=== PATIENT | male | born 1935 | race African-American/Black ===

== ENCOUNTER 2017-07-22 05:18 | Observation (INO) | payer MEDICARE ==
[~2017-07-22] VITALS: Ht 198.1 cm; Wt 83.0 kg
[2017-07-22 06:47] LABS: BASOPHILS % 0.3 % (0.0-1.0); EOSINOPHILS # (AUTO) 0.1 (0.0-0.4); EOSINOPHILS % 3.2 % (0.0-6.0); HEMATOCRIT 29.7 % (38.2-49.6); HEMOGLOBIN 9.4 g/dL (14.0-18.0); LYMPHOCYTES # (AUTO) 0.8 (1.0-3.2); LYMPHOCYTES % 24.2 % (18.0-39.1); MEAN CORPUSCULAR HEMOGLOBIN 27.2 pg (28-32); MEAN CORPUSCULAR HGB CONC 31.6 g/dL (31-35); MEAN CORPUSCULAR VOLUME 86.1 fL (81-99); MONOCYTES # (AUTO) 0.6 (0.2-0.8); MONOCYTES % 16.4 % (4.4-11.3); NEUTROPHILS # (AUTO) 1.9 (2.1-6.9); NEUTROPHILS % 55.6 % (38.7-80.0); PLATELET COUNT 260 x10e3/uL (140-360); RED BLOOD COUNT 3.45 x10e6/uL (4.3-5.7); RED CELL DISTRIBUTION WIDTH 13.9 % (11.7-14.4)
[2017-07-22 06:53] LABS: INR 1.02; PROTHROMBIN TIME 13.9 seconds (11.9-14.5)
[2017-07-22 06:54] LABS: PARTIAL THROMBOPLASTIN TIME 48.8 seconds (23.8-35.5)
[2017-07-22] MEDS ORDERED: ASPIRIN81 MG PO (06:58)
[2017-07-22] MEDS ORDERED: MIDODRINE HCL2.5 MG PO (06:58)
[2017-07-22] MEDS ORDERED: FLOMAX0.4 MG PO (06:58)
[2017-07-22] MEDS ORDERED: CEFDINIR300 MG PO (06:58)
[2017-07-22] MEDS ORDERED: CIPROFLOXACIN250 MG PO (06:58)
[2017-07-22 07:00] LABS: ANION GAP 13.4 mmol/L (8-16); CALCIUM 8.4 mg/dL (8.4-10.2); CREATININE, SERUM 7.34 mg/dL (0.72-1.25); POTASSIUM 4.4 mmol/L (3.5-5.1)
[2017-07-22] MEDS ORDERED: CEFTRIAXONE SOD 1 GM VIAL ONE (07:10)
[2017-07-22] MEDS ORDERED: SODIUM CHLORIDE 0.9% 500ML 500 ML ONE (07:10)
[2017-07-22] MEDS ORDERED: BUPIVACAINE 7.5MG/ML /DEXTROSE 82.5MG/ML 2 ML AMP INJ ONE (07:49)
[2017-07-22 10:03] LABS: HEMATOCRIT 28.3 % (38.2-49.6); HEMOGLOBIN 8.9 g/dL (14.0-18.0)
[2017-07-22 10:20] LABS: ANION GAP 14.6 mmol/L (8-16); CALCIUM 8.1 mg/dL (8.4-10.2); CREATININE, SERUM 7.18 mg/dL (0.72-1.25); POTASSIUM 4.6 mmol/L (3.5-5.1)
[2017-07-22 11:23] VITALS: BP 156/69
[2017-07-22 12:00] VITALS: BP 159/69
[2017-07-22] MEDS ORDERED: SODIUM CHLORIDE 0.45% 1,000 ML IV ONE (13:00)
[2017-07-22 16:00] VITALS: BP 114/58
[2017-07-22] MEDS: TRAMADOL HCL 50 MG TAB PO SCH (17:07)
[2017-07-22] MEDS ORDERED: FENTANYL CITRATE/PF 100MCG/2 ML INJ ONE (19:31)
[2017-07-22 20:00] VITALS: BP 118/56
[2017-07-23] VITALS (7 sets, daily range): BP systolic 101–133; BP diastolic 55–68
[2017-07-23] MEDS: TRAMADOL HCL 50 MG TAB PO SCH ×4 (00:45→17:20)
[2017-07-23 06:27] LABS: HEMATOCRIT 22.6 % (38.2-49.6); HEMOGLOBIN 7.2 g/dL (14.0-18.0)
[2017-07-23 06:45] LABS: ANION GAP 12.2 mmol/L (8-16); CALCIUM 7.9 mg/dL (8.4-10.2); CREATININE, SERUM 7.35 mg/dL (0.72-1.25); POTASSIUM 4.2 mmol/L (3.5-5.1)
--- NOTE | 2017-07-23 10:46 | Operative Report ---
DATE OF PROCEDURE: July 22, 2017 PREOPERATIVE DIAGNOSIS: Urinary retention. POSTOPERATIVE DIAGNOSIS: Urinary retention. OPERATIVE PROCEDURES PERFORMED 1. Cystoscopy. 2. Transurethral resection of prostate. ANESTHESIA: Spinal with IV sedation. ESTIMATED BLOOD LOSS: Less than 100 mL. INDICATIONS: Mr. Herbert Rodriguez is an 82-year-old gentleman with a history of urinary retention for the past month, which has failed multiple voiding trials despite maximum medical management. He now presents for surgical management of this problem. PROCEDURE IN DETAIL: The patient was brought into the operating room, and after administration of spinal anesthesia, he was placed in the dorsal lithotomy position, and prepped and draped in the usual sterile fashion. Cystourethroscopy was performed using a 21-Salvadorean cystoscope. The anterior and posterior urethra were noted to be normal. 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 Upon entrance into the bladder, the ureteral orifices were very difficult to visualize given the large intravesical median lobe. There were grade 2 trabeculations with cellule formation noted. There were no mucosal lesions identified. The bladder was left full, and the cystoscope and sheath were removed. A 26-Salvadorean resectoscope sheath was then placed in a retrograde fashion, and the [employer] resectoscope was used to perform the procedure. No attempt was made to resect the right side of the gland during the procedure. The left side of the gland, as well as the median lobe were resected down to the level of the surgical capsule. Minimal residual tissue was seen left on the floor on the gland. The [email or web address] evacuator was used to remove these chips, and these were sent to pathology for microscopic analysis. Minimal bleeding was noted at the conclusion of the procedure. There was no gross extravasation at the surgical capsule. Once all the chips were evacuated, the resectoscope and sheath were removed. The patient was noted to have a brisk urinary flow with Coude. A 24-Salvadorean, 3-way Coude catheter was then placed in a retrograde fashion. The catheter balloon inflated with 40 mL of sterile water. The urinary efflux was noted to be blood-tinged. He was started on continuous bladder irrigation, and returned to a supine position. He was transferred to a bed and taken to the postanesthesia care unit in good condition. Of note, the needle and instrument count were correct at the conclusion of the case. Job#: [id number] RI
[2017-07-23] MEDS ORDERED: LIDOCAINE HCL 2% LOCAL INJ 5 ML SDV VIAL INJ ONE (18:29)
[2017-07-23] MEDS ORDERED: PROPOFOL IV EMULSION 10 MG/ML 20 ML VIAL ONE (18:29)
[2017-07-24] VITALS: BP 134/63
[2017-07-24 04:00] VITALS: BP 113/59
[2017-07-24] MEDS: TRAMADOL HCL 50 MG TAB PO SCH ×3 (06:13→12:00)
[2017-07-24 07:25] LABS: HEMATOCRIT 20.3 % (38.2-49.6); HEMOGLOBIN 6.5 g/dL (14.0-18.0)
[2017-07-24 08:10] VITALS: BP 113/59
[2017-07-24 08:18] VITALS: BP 117/56
== END 2017-07-24 12:40 | disposition home or self-care (01) ==
LOC: OR 05:18 → MED/SURG2 10:07 → MED/SURG 07-23 21:40
PROVIDERS: ADMIT Urology; ATTEND Urology
DX: N41.1 Chronic prostatitis (principal); N40.1 Benign prostatic hyperplasia with lower urinary tract symptoms; R33.8 Other retention of urine
CPT/HCPCS: 36415 ×3; 52630; 80048 ×2; 85014 ×3; 85018 ×3; 85025; 85610; 85730; 88305; 97162; G0378 ×3; J0696; J2001; J7040

== ENCOUNTER 2017-09-08 22:43 | Emergency (ER) | payer MEDICARE ==
[~2017-09-08] VITALS: Ht 198.1 cm; Wt 83.0 kg
[~2017-09-08 22:43] MED LIST: ASPIRIN81 MG PO; CEFDINIR300 MG PO; CIPROFLOXACIN250 MG PO; FLOMAX0.4 MG PO; MIDODRINE HCL2.5 MG PO
--- OUTSIDE RECORDS SUMMARY | 2017-09-08 22:45 | XMS REPORT ---
Author Author [facility] Address Unknown Phone Unavailable Care Team Providers Care Baggage Handling Supervisor Name Role Phone Unavailable Unavailable Problems This patient has no known problems. Allergies, Adverse Reactions, Alerts This patient has no known allergies or adverse reactions. Medications This patient has no known medications. Encounters Start Date/Time End Date/Time Encounter Type Admission Type Attending [facility] Facility Care Department Encounter ID 2017-04-25 04:10:51 2017-04-25 04:10:51 Emergency [facility] [id number] 2017-04-25 03:16:39 2017-04-25 03:16:39 Emergency [facility] [id number]
--- OUTSIDE RECORDS SUMMARY | 2017-09-08 22:45 | XMS REPORT | Continuity of Care Document ---
Author Author [facility] Organization [facility] Address [address] [place] [address] Phone Unavailable Care Team Providers Care Implementation Specialist Payroll Name Role Phone NONSTAFF PCP Unavailable Advance Directives Directive Response Recorded Date/Time Does the patient have an advance directive? No 07/22/17 11:19am If yes, is advance directive on file with [facility]? No 07/16/17 12:01pm If not on file with [facility] will patient provide a copy? No 07/16/17 12:01pm Do you have a Directive to Physician? No 07/16/17 12:01pm Do you have a Medical Power of Form Layer? No 07/16/17 12:01pm Do you have an out of hospital Do Not Resuscitate Order? No 07/16/17 12:01pm Do you have any special needs we should be aware of? No 07/16/17 12:01pm Do you have a support person here with you today? Yes 07/16/17 12:01pm Did patient receive Notice of Privacy Practices? Yes 07/16/17 12:01pm Did patient receive patient rights and responsibilities? Yes 07/16/17 12:01pm Problems No problem information available. Medications Current Home Medications Medication Dose Units Route Directions Days Qty Instructions Start Date Aspirin 81 Mg Tab.chew 81 Mg Oral Daily Cefdinir (Omnicef) 300 Mg Capsule 300 Mg Oral Three Times A Day Ciprofloxacin Hcl 250 Mg Tablet 250 Mg Oral Twice A Day Midodrine Hcl 2.5 Mg Tablet 10 Mg Oral Three Times A Day Tamsulosin Hcl (Flomax*) 0.4 Mg Cap 0.4 Mg Oral Daily 30 Cap Social History Social History Problem Response Recorded Date/Time Onset Date Status Hx Eating Disorder No 07/22/2017 11:19am Not Applicable Not Applicable Hx Substance Use Disorder No 07/22/2017 11:19am Not Applicable Not Applicable Hx Depression No 07/22/2017 11:19am Not Applicable Not Applicable Hx Alcohol Use No 07/22/2017 11:19am Not Applicable Not Applicable Hx Substance Use Treatment No 07/22/2017 11:19am Not Applicable Not Applicable Hx Physical Abuse No 07/22/2017 11:19am Not Applicable Not Applicable Smoking Status Start Date Stop Date Never Smoker Hospital Discharge Instructions No hospital discharge instruction information available. Plan of Care Discharge Date 07/24/17 12:40pm Disposition HOME, SELF-CARE Instructions/Education Provided Urinary Retention Prescriptions See Medication Section Referrals GRANT SIMMONS MD (Urology) Order Date: 2 Weeks Entered Date: 07/24/2017 9:59am Address: [address] [place] [address] [address] [place] [address] Additional Instructions/Education FOLLOW UP WITH DR. SIMMONS IN TWO WEEKS. Functional Status Query Response Date Recorded FUNCTIONAL STATUS . July 24, 2017 8:50am Assistive Devices None July 22, 2017 11:23am Ambulation Ability Minimum Assistance July 22, 2017 11:23am Toileting Ability Moderate Assistance July 23, 2017 12:02pm Allergies, Adverse Reactions, Alerts No known allergies. Immunizations No immunization information available. Vital Signs Acute Vital Signs Vital Response Date/Time Temperature (Fahrenheit) 96.9 degrees F (97.6 - 99.5) 07/24/2017 8:18am Pulse Pulse Rate (adult) 81 bpm (60 - 90) 07/24/2017 8:18am Respiratory Rate 18 bpm (12 - 24) 07/24/2017 8:18am Blood Pressure 117/56 mm Hg 07/24/2017 8:18am Height 6 ft 6 in 07/22/2017 11:19am Weight 183.05 lb 07/23/2017 9:49pm Body Mass Index 21.2 kg/m^2 07/23/2017 9:49pm Results Laboratory Results Test Name Result Units Flags Reference Collection Date/Time Result Date/ Time Comments White Blood Count 3.47 x10e3/uL L 4.8-10.8 07/22/2017 6:30am 07/22/2017 6:48am Red Blood Count 3.45 x10e6/uL L 4.3-5.7 07/22/2017 6:30am 07/22/2017 6: 48am Hemoglobin 6.5 g/dL *L 14.0-18.0 07/24/2017 6:35am 07/24/2017 7:25am Results called to OLIVE RODRIGUEZ RN at 0724 on 07/24/17 by Beto Morales. BETTY OK. This test has been rerun and double checked for accuracy. Hematocrit 20.3 % *L 38.2-49.6 07/24/2017 6:35am 07/24/2017 7:25am Results called to OLIVE RODRIGUEZ RN at 0724 on 07/24/17 by Beto Morales. BETTY OK. This test has been rerun and double checked for accuracy. Mean Corpuscular Volume 86.1 fL 81-99 07/22/2017 6:30am 07/22/2017 6: 48am Mean Corpuscular Hemoglobin 27.2 pg L 28-32 07/22/2017 6:30am 2017 6:48am Mean Corpuscular Hemoglobin Concent 31.6 g/dL 31-35 07/22/2017 6:30am 07/22/2017 6:48am Red Cell Distribution Width 13.9 % 11.7-14.4 07/22/2017 6:30am 2017 6:48am Platelet Count 260 x10e3/uL 140-360 07/22/2017 6:30am 07/22/2017 6: 48am Neutrophils (%) (Auto) 55.6 % 38.7-80.0 07/22/2017 6:30am 07/22/2017 6: 48am Lymphocytes (%) (Auto) 24.2 % 18.0-39.1 07/22/2017 6:30am 07/22/2017 6: 48am Monocytes (%) (Auto) 16.4 % H 4.4-11.3 07/22/2017 6:30am 07/22/2017 6: 48am Eosinophils (%) (Auto) 3.2 % 0.0-6.0 07/22/2017 6:3007/22/2017 6: 48am Basophils (%) (Auto) 0.3 % 0.0-1.0 07/22/2017 6:30am 07/22/2017 6:48am IM GRANULOCYTES % 0.3 % 0.0-1.0 07/22/2017 6:3007/22/2017 6:48am Neutrophils # (Auto) 1.9 L 2.1-6.9 07/22/2017 6:3007/22/2017 6: 48am Lymphocytes # (Auto) 0.8 L 1.0-3.2 07/22/2017 6:3007/22/2017 6: 48am Monocytes # (Auto) 0.6 0.2-0.8 07/22/2017 6:30am 07/22/2017 6:48am Eosinophils # (Auto) 0.1 0.0-0.4 07/22/2017 6:30am 07/22/2017 6:48am Basophils # (Auto) 0.0 0.0-0.1 07/22/2017 6:30am 07/22/2017 6:48am Absolute Immature Granulocyte (auto 0.01 x10e3/uL 0-0.1 07/22/2017 6: 3007/22/2017 6:48am Prothrombin Time 13.9 seconds 11.9-14.5 07/22/2017 6:30am 07/22/2017 6: 54am Prothromb Time International Ratio 1.02 07/22/2017 6:302017 6:54am Oral Anticoagulant Therapy INR Values: 1. Low Intensity Therapy 1.5 - 2.0 2. Moderate Intensity Therapy 2.0 - 3.0 3. High Intensity Therapy(1) 2.5 - 3.5 4. High Intensity Therapy(2) 3.0 - 4.0 5. Panic Value INR > 5.0 Activated Partial Thromboplast Time 48.8 seconds H 23.8-35.5 07/22/2017 6 :30am 07/22/2017 6:54am Sodium Level 136 mmol/L 136-145 07/23/2017 5:58am 07/23/2017 7:00am Potassium Level 4.2 mmol/L 3.5-5.1 07/23/2017 5:58am 07/23/2017 7:00am Chloride Level 100 mmol/L 98-107 07/23/2017 5:58am 07/23/2017 7:00am Carbon Dioxide Level 28 mmol/L 22-29 07/23/2017 5:58am 07/23/2017 7: 00am Anion Gap 12.2 mmol/L 8-16 07/23/2017 5:58am 07/23/2017 7:00am Blood Urea Nitrogen 43 mg/dL H 7-26 07/23/2017 5:58am 07/23/2017 7:00am Creatinine 7.35 mg/dL H 0.72-1.25 07/23/2017 5:58am 07/23/2017 7:00am BUN/Creatinine Ratio 6 6-25 07/23/2017 5:58am 07/23/2017 7:00am Estimat Glomerular Filtration Rate 9 ML/MIN L 60- 07/23/2017 5:58am 7:00am Ranges were taken from the National Kidney Disease Education Program and the National Kidney Foundation literature. Reference ranges: 60 or greater: Normal 16-59 (for 3 consecutive months): Chronic kidney disease 15 or less: Kidney failure Glucose Level 107 mg/dL 74-118 07/23/2017 5:58am 07/23/2017 7:00am Calcium Level 7.9 mg/dL L 8.4-10.2 07/23/2017 5:58am 07/23/2017 7:00am Procedures Procedure Status Date Provider(s) TURP (transurethral resection of prostate) Completed 07/22/17 GRANT SIMMONS MD Encounters Encounter Location Arrival/Admit Date Discharge/Depart Date Attending Provider Discharged Inpatient (obs) [facility] 07/22/17 10:07am 12:40pm GRANT SIMMONS MD
[2017-09-08 23:52] LABS: BILIRUBIN,URINE NEGATIVE (NEGATIVE); COLOR,URINE YELLOW (YELLOW); KETONES,URINE NEGATIVE (NEGATIVE); LEUKOCYTE ESTERASE ,URINE 1+ (NEGATIVE); NITRITE,URINE NEGATIVE (NEGATIVE); URINE UROBILINOGEN 0.2 mg/dL (0.2 - 1)
[2017-09-08 23:55] LABS: CLARITY,URINE CLEAR (CLEAR); PROTEIN,URINE DIPSTICK 2+ (NEGATIVE)
[2017-09-09 00:01] LABS: BACTERIA,URINE FEW /HPF; EPITHELIAL CELLS,URINE FEW /LPF; WBC,URINE (MAN) >50 /HPF (0-5)
--- NOTE | 2017-09-09 00:27 | Diagnostic Imaging Report ---
EXAM: ABDOMEN-1VIEW (KUB), supine and erect INDICATION: Constipation, lower abdominal pain COMPARISON: None FINDINGS: LINES/TUBES: None BOWEL PATTERN: Nonspecific gaseous distention predominantly of the sigmoid colon. SOFT TISSUES: No abnormal calcifications. LUNG BASES: No consolidations. BONES: No acute findings. IMPRESSION: Nonspecific gaseous distention predominantly of the sigmoid colon. Signed by: Dr. Daxa Greenwood M.D. on 09/09/2017 12:23 AM
[2017-09-09] MEDS ORDERED: DIATRIZOATE MEGL/DIATRIZOA SOD 30 ML BTL PO ONE (01:19)
[2017-09-09 02:30] LABS: BASOPHILS % 0.3 % (0.0-1.0); HEMOGLOBIN 11.4 g/dL (14.0-18.0); LYMPHOCYTES # (AUTO) 1.3 (1.0-3.2); LYMPHOCYTES % 33.7 % (18.0-39.1); MEAN CORPUSCULAR HEMOGLOBIN 28.4 pg (28-32); MEAN CORPUSCULAR HGB CONC 31.7 g/dL (31-35); MEAN CORPUSCULAR VOLUME 89.8 fL (81-99); MONOCYTES # (AUTO) 0.4 (0.2-0.8); MONOCYTES % 11.3 % (4.4-11.3); NEUTROPHILS # (AUTO) 2.1 (2.1-6.9); NEUTROPHILS % 53.4 % (38.7-80.0); PLATELET COUNT 160 x10e3/uL (140-360); RED BLOOD COUNT 4.01 x10e6/uL (4.3-5.7); RED CELL DISTRIBUTION WIDTH 16.1 % (11.7-14.4)
[2017-09-09 02:58] LABS: ALBUMIN 3.4 g/dL (3.5-5.0); ALBUMIN/GLOBULIN RATIO 1.1 (0.8-2.0); ANION GAP 13.8 mmol/L (8-16); CALCIUM 8.5 mg/dL (8.4-10.2); CREATININE, SERUM 4.14 mg/dL (0.72-1.25); POTASSIUM 3.8 mmol/L (3.5-5.1)
--- NOTE | 2017-09-09 03:19 | Diagnostic Imaging Report ---
EXAM: CT ABDOMEN AND PELVIS without IV CONTRAST INDICATION: Constipation for 3 days COMPARISON: None TECHNIQUE: The abdomen and pelvis were scanned using a multidetector helical scanner. Coronal and sagittal reformations were obtained. Routine protocol performed. IV Contrast: None Oral Contrast: Gastrografin CTDIvol has been reviewed. It is below the limits set by the Radiation Protocol Committee (RPC). FINDINGS: LOWER THORAX: No consolidations. 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 Partially visualized cardiomegaly. LIVER: Numerous hypoechoic lesions. The larger measurable ones are fluid density consistent with cysts. BILIARY: The gallbladder contains high density material suggesting sludge. No ductal dilation. SPLEEN: No masses PANCREAS: No masses ADRENALS: No nodules RIGHT KIDNEY: No nephroureterolithiasis or hydronephrosis. Innumerable simple and high density cysts. LEFT KIDNEY: No nephroureterolithiasis or hydronephrosis. Innumerable simple and high density cysts, some with calcifications. GI TRACT: Large amount of retained stool with mild air distention of a redundant sigmoid colon. No bowel obstruction. Normal appendix. VESSELS: Mild atherosclerotic changes of the abdominal aorta without aneurysm. PERITONEUM/RETROPERITONEUM: No free air or fluid LYMPH NODES: No lymphadenopathy REPRODUCTIVE ORGANS: The prostate is enlarged measuring 5.6 cm in transverse diameter. BLADDER: Normal SOFT TISSUES: Normal BONES: There are lucencies in several superior and inferior endplates throughout the lower thoracic and lumbar spine. Additional indeterminate lucencies scattered throughout the pelvis as well as nonspecific areas of sclerosis including the right ischium, left proximal femur, left iliac bone and L1 vertebral body. IMPRESSION: 1. Large amount of retained stool without evidence of obstruction. 2. Polycystic kidneys and numerous liver cysts. 3. Prostatomegaly and partially visualized cardiomegaly. 4. Several indeterminate lucent and sclerotic lesions throughout the spine and pelvis. These could be benign lesions such as Schmorl's nodes and changes related to renal osteodystrophy. If patient has a known primary malignancy, and if there are no priors for comparison, consider nuclear medicine bone scan. Signed by: Dr. Daxa Greenwood M.D. on 09/09/2017 3:16 AM
== END 2017-09-09 04:01 | disposition home or self-care (01) ==
LOC: ER 22:43
DX: R10.30 Lower abdominal pain, unspecified (principal); N30.90 Cystitis, unspecified without hematuria; K59.00 Constipation, unspecified
CPT/HCPCS: 36415; 74018; 74176; 80053; 81001; 85025; 99284

== ENCOUNTER 2017-09-22 18:54 | Emergency (ER) | payer MEDICARE ==
[~2017-09-22] VITALS: Ht 198.1 cm; Wt 83.0 kg
--- OUTSIDE RECORDS SUMMARY | 2017-09-22 18:57 | XMS REPORT | Continuity of Care Document ---
Author Author [facility] Organization [facility] Address [address] [place] [address] Phone Unavailable Care Team Providers Care Mechanic And Welder Name Role Phone NONSTAFF PCP Unavailable Insurance Providers Guarantor Coco Alejo Address [address] [place] [address] Email NONE Payer [employer] Policy Number [id number] Subscriber's Name Coco Alejo Relationship 18 Self / Same As Patient Advance Directives Directive Response Recorded Date/Time Does the patient have an advance directive? No 07/22/17 11:19am If yes, is advance directive on file with [facility]? No 07/16/17 12:01pm If not on file with [facility] will patient provide a copy? No 07/16/17 12:01pm Do you have a Directive to Physician? No 09/09/17 2:00am Do you have a Medical Power of Doughnut Dough Mixer? No 09/09/17 2:00am Do you have an out of hospital Do Not Resuscitate Order? No 09/09/17 2:00am Do you have any special needs we should be aware of? No 09/09/17 2:00am Do you have a support person here with you today? Yes 09/09/17 2:00am Did patient receive Notice of Privacy Practices? Yes 09/09/17 2:00am Did patient receive patient rights and responsibilities? Yes 09/09/17 2:00am Problems No problem information available. Medications Current [...] information available. Plan of Care Discharge Date 09/09/17 4:01am Disposition HOME, SELF-CARE Condition at Discharge Stable Instructions/Education Provided Constipation - Adult Urinary Tract Infection - Men Forms Provided Work/School Excuse Prescriptions See Medication Section Additional Instructions/Education [id number] FLEETS ENEMA DIRECTED ON LABEL TAKE MEDICATIONS PRESCRIBED FOLLOW-UP WITH YOUR PRIMARY CARE PROVIDER, CALL FOR APPOINTMENT Functional Status No functional status information available. Allergies, Adverse Reactions, Alerts No known allergies. Immunizations No immunization information available. Vital Signs Acute Vital Signs Vital Response Date/Time Temperature (Fahrenheit) 96.9 degrees F (97.6 - 99.5) 07/24/2017 8:18am Pulse Pulse Rate (adult) 81 bpm (60 - 90) 07/24/2017 8:18am Respiratory Rate 18 bpm (12 - 24) 07/24/2017 8:18am Blood Pressure 117/56 mm Hg 07/24/2017 8:18am Height 6 ft 6 in 09/08/2017 11:14pm Weight 183 lb 09/08/2017 11:14pm Body Mass Index 21.1 kg/m^2 09/08/2017 11:14pm Results Laboratory Results Test Name Result Units Flags Reference Collection Date/Time Result Date/ Time Comments Prothrombin Time 13.9 seconds 11.9-14.5 07/22/2017 6:3007/22/2017 6: 54am Prothromb Time International Ratio 1.02 07/22/2017 6:302017 6:54am Oral Anticoagulant Therapy INR Values: 1. Low Intensity Therapy 1.5 - 2.0 2. Moderate Intensity Therapy 2.0 - 3.0 3. High Intensity Therapy(1) 2.5 - 3.5 4. High Intensity Therapy(2) 3.0 - 4.0 5. Panic Value INR > 5.0 Activated Partial Thromboplast Time 48.8 seconds H 23.8-35.5 07/22/2017 6 :3007/22/2017 6:54am White Blood Count 3.89 x10e3/uL L 4.8-10.8 09/09/2017 2:09/09/2017 2:31am Red Blood Count 4.01 x10e6/uL L 4.3-5.7 09/09/2017 2:09/09/2017 2: 31am Hemoglobin 11.4 g/dL L 14.0-18.0 09/09/2017 2:09/09/2017 2:31am Hematocrit 36.0 % L 38.2-49.6 09/09/2017 2:09/09/2017 2:31am Mean Corpuscular Volume 89.8 fL 81-99 09/09/2017 2:09/09/2017 2: 31am Mean Corpuscular Hemoglobin 28.4 pg 28-32 09/09/2017 2:09/09/2017 2:31am Mean Corpuscular Hemoglobin Concent 31.7 g/dL 31-35 09/09/2017 2:09/09/2017 2:31am Red Cell Distribution Width 16.1 % H 11.7-14.4 09/09/2017 2:2017 2:31am Platelet Count 160 x10e3/uL 140-360 09/09/2017 2:09/09/2017 2: 31am Neutrophils (%) (Auto) 53.4 % 38.7-80.0 09/09/2017 2:09/09/2017 2: 31am Lymphocytes (%) (Auto) 33.7 % 18.0-39.1 09/09/2017 2:09/09/2017 2: 31am Monocytes (%) (Auto) 11.3 % 4.4-11.3 09/09/2017 2:09/09/2017 2: 31am Eosinophils (%) (Auto) 1.0 % 0.0-6.0 09/09/2017 2:09/09/2017 2: 31am Basophils (%) (Auto) 0.3 % 0.0-1.0 09/09/2017 2:09/09/2017 2:31am IM GRANULOCYTES % 0.3 % 0.0-1.0 09/09/2017 2:09/09/2017 2:31am Neutrophils # (Auto) 2.1 2.1-6.9 09/09/2017 2:09/09/2017 2:31am Lymphocytes # (Auto) 1.3 1.0-3.2 09/09/2017 2:09/09/2017 2:31am Monocytes # (Auto) 0.4 0.2-0.8 09/09/2017 2:09/09/2017 2:31am Eosinophils # (Auto) 0.0 0.0-0.4 09/09/2017 2:09/09/2017 2:31am Basophils # (Auto) 0.0 0.0-0.1 09/09/2017 2:09/09/2017 2:31am Absolute Immature Granulocyte (auto 0.01 x10e3/uL 0-0.1 09/09/2017 2: 09/09/2017 2:31am Urine Color YELLOW YELLOW 09/08/2017 11:41pm 09/08/2017 11:55pm Urine Clarity CLEAR CLEAR 09/08/2017 11:41pm 09/08/2017 11:55pm Urine Specific [place] 1.010 1.010-1.025 09/08/2017 11:41pm 2017 11:55pm Urine pH 8 H 5 - 7 09/08/2017 11:41pm 09/08/2017 11:55pm Urine Leukocyte Esterase 1+ H NEGATIVE 09/08/2017 11:41pm 09/08/2017 11:55pm Urine Nitrite NEGATIVE NEGATIVE 09/08/2017 11:41pm 09/08/2017 11: 55pm Urine Protein 2+ H NEGATIVE 09/08/2017 11:41pm 09/08/2017 11:55pm Urine Glucose (UA) NEGATIVE NEGATIVE 09/08/2017 11:41pm 09/08/2017 11 :55pm Urine Ketones NEGATIVE NEGATIVE 09/08/2017 11:41pm 09/08/2017 11: 55pm Urine Urobilinogen 0.2 mg/dL 0.2 - 1 09/08/2017 11:41pm 09/08/2017 11: 55pm Urine Bilirubin NEGATIVE NEGATIVE 09/08/2017 11:41pm 09/08/2017 11: 55pm Urine Blood 1+ H NEGATIVE 09/08/2017 11:41pm 09/08/2017 11:55pm Urine WBC >50 /HPF H 0-5 09/08/2017 11:41pm 09/09/2017 12:01am Urine RBC 6-10 /HPF H 0-5 09/08/2017 11:41pm 09/09/2017 12:01am Urine Bacteria FEW /HPF NONE 09/08/2017 11:41pm 09/09/2017 12:01am Urine Epithelial Cells FEW /LPF NONE 09/08/2017 11:41pm 09/09/2017 12: 01am Sodium Level 136 mmol/L 136-145 09/09/2017 2:23am 09/09/2017 3:04am Potassium Level 3.8 mmol/L 3.5-5.1 09/09/2017 2:23am 09/09/2017 3:04am Chloride Level 102 mmol/L 98-107 09/09/2017 2:23am 09/09/2017 3:04am Carbon Dioxide Level 24 mmol/L 22-29 09/09/2017 2:23am 09/09/2017 3: 04am Anion Gap 13.8 mmol/L 8-16 09/09/2017 2:23am 09/09/2017 3:04am Blood Urea Nitrogen 19 mg/dL 7-26 09/09/2017 2:23am 09/09/2017 3:04am Creatinine 4.14 mg/dL H 0.72-1.25 09/09/2017 2:23am 09/09/2017 3:04am BUN/Creatinine Ratio 5 L 6-25 09/09/2017 2:23am 09/09/2017 3:04am Estimat Glomerular Filtration Rate 17 ML/MIN L 60- 09/09/2017 2: 3:04am Ranges were taken from the National Kidney Disease Education Program and the National Kidney Foundation literature. Reference ranges: 60 or greater: Normal 16-59 (for 3 consecutive months): Chronic kidney disease 15 or less: Kidney failure Glucose Level 93 mg/dL 74-118 09/09/2017 2:am 09/09/2017 3:04am Calcium Level 8.5 mg/dL 8.4-10.2 09/09/2017 2:09/09/2017 3:04am Total Bilirubin 0.4 mg/dL 0.2-1.2 09/09/2017 2:09/09/2017 3:04am Aspartate Amino Transf (AST/SGOT) 12 IU/L 5-34 09/09/2017 2:am 2017 3:04am Alanine Aminotransferase (ALT/SGPT) 11 IU/L 0-55 09/09/2017 2:am 3:04am Total Protein 6.5 g/dL 6.5-8.1 09/09/2017 2:09/09/2017 3:04am Albumin 3.4 g/dL L 3.5-5.0 09/09/2017 2:am 09/09/2017 3:04am Globulin 3.1 g/dL 2.3-3.5 09/09/2017 2:am 09/09/2017 3:04am Albumin/Globulin Ratio 1.1 0.8-2.0 09/09/2017 2:09/09/2017 3: 04am Alkaline Phosphatase 150 IU/L 40-150 09/09/2017 2:09/09/2017 3: 04am Procedures Procedure Status Date Provider(s) REMOVE PROSTATE REGROWTH Completed 07/22/[address] of abdomen and pelvis without contrast Active 09/09/17 MILES GANADRA MD Encounters Encounter Location Arrival/Admit Date Discharge/Depart Date Attending Provider Departed Emergency Room [facility] 09/08/17 10:43pm 09/09 4:01am MILES GANDARA MD Discharged Inpatient (obs) [facility] 07/22/17 10:07am 12:40pm GRANT SIMMONS MD
[2017-09-22] MEDS ORDERED: DIATRIZOATE MEGL/DIATRIZOA SOD 30 ML BTL PO ONE (20:53)
--- NOTE | 2017-09-22 21:25 | Diagnostic Imaging Report ---
EXAM: ABDOMEN ACUTE SERIES W/PA CXR DATE: 09/22/2017 8:23 PM Time stamp on exam: incorrectly labeled 2150 hours INDICATION: Abdominal pain, constipation COMPARISON: CT of the abdomen and pelvis without contrast on 09/09/2017 FINDINGS: LINES/TUBES: None BOWEL PATTERN: No evidence for mechanical obstruction. However, there are multiple small bowel and into a lesser extent large bowel fluid levels SOFT TISSUES: Multiple pelvic phleboliths present LUNGS: Tiny metallic density overlying the left ventricle/cardiac silhouette. The lungs are clear BONES: No acute findings. IMPRESSION: 1. No evidence of acute intrathoracic abnormality. 2. Nondilated small and large bowel air-fluid levels compatible with gastroenteritis, enterocolitis or a partial obstruction Signed by: Dr. Travis Rucker M.D. on 09/22/2017 9:21 PM
[2017-09-22 22:55] LABS: BASOPHILS % 0.3 % (0.0-1.0); EOSINOPHILS % 1.2 % (0.0-6.0); HEMATOCRIT 38.8 % (38.2-49.6); HEMOGLOBIN 12.8 g/dL (14.0-18.0); LYMPHOCYTES # (AUTO) 1.2 (1.0-3.2); LYMPHOCYTES % 35.6 % (18.0-39.1); MEAN CORPUSCULAR HEMOGLOBIN 28.4 pg (28-32); MONOCYTES # (AUTO) 0.6 (0.2-0.8); MONOCYTES % 16.6 % (4.4-11.3); NEUTROPHILS # (AUTO) 1.6 (2.1-6.9); PLATELET COUNT 132 x10e3/uL (140-360); RED BLOOD COUNT 4.51 x10e6/uL (4.3-5.7); RED CELL DISTRIBUTION WIDTH 16.1 % (11.7-14.4)
--- NOTE | 2017-09-22 22:56 | Diagnostic Imaging Report ---
EXAM: CT Abdomen and Pelvis WITHOUT contrast INDICATION: Small bowel obstruction. COMPARISON: Acute abdominal series on 09/22/2017 TECHNIQUE: Abdomen and pelvis were scanned utilizing a multidetector helical scanner from the lung base to the pubic symphysis without administration of IV contrast. Absence of intravenous contrast decreases sensitivity for detection of focal lesions and vascular pathology. Coronal and sagittal reformations were obtained. Routine protocol was performed. IV CONTRAST: None. ORAL CONTRAST: Gastrografin RADIATION DOSE: Total DLP: 272.89 mGy*cm Estimated effective dose: (DLP x 0.015 x size factor) mSv COMPLICATIONS: None FINDINGS: LINES and TUBES: None. LOWER THORAX: Unremarkable HEPATOBILIARY: There are multiple scattered too small to characterize hypodensities in the liver, likely benign. No biliary ductal dilation. GALLBLADDER: No radio-opaque stones or sludge. No wall thickening. SPLEEN: No splenomegaly. PANCREAS: No focal masses or ductal dilatation. ADRENALS: No adrenal nodules KIDNEYS/URETERS: No hydronephrosis. There are scattered too small to characterize hypodensities, likely benign. No stones. GI TRACT: No abnormal distention, wall thickening, or evidence of bowel obstruction. Appendix is normal. PELVIC ORGANS/BLADDER: Unremarkable. LYMPH NODES: No lymphadenopathy. VESSELS: There is moderate atherosclerotic disease in the aorta and major arterial branches. PERITONEUM / RETROPERITONEUM: No free air or fluid. Small right posterior Bochdalek hernia. BONES: There are degenerative changes in the lumbar spine with prominent Schmorl nodules noted in the lower thoracic and upper lumbar spine. SOFT TISSUES: Unremarkable. IMPRESSION: 1. The presence of multicystic liver and bilateral multicystic kidneys suggest polycystic disease in the appropriate clinical setting. 2. No evidence of small or large bowel obstruction. Signed by: Dr. Travis Rucker M.D. on 09/22/2017 10:52 PM
[2017-09-22 23:06] LABS: INR 1.24; PROTHROMBIN TIME 14.7 seconds (11.9-14.5)
[2017-09-22 23:07] LABS: PARTIAL THROMBOPLASTIN TIME 50.1 seconds (23.8-35.5)
[2017-09-22 23:16] LABS: ALBUMIN 3.4 g/dL (3.5-5.0); ANION GAP 13.4 mmol/L (8-16); CALCIUM 8.7 mg/dL (8.4-10.2); CREATININE, SERUM 4.05 mg/dL (0.72-1.25); POTASSIUM 4.4 mmol/L (3.5-5.1)
[2017-09-22 23:26] LABS: CREATINE KINASE MB 1.7 ng/mL (0-5.0)
[2017-09-22 23:48] LABS: AMYLASE 85 U/L (25-125); LIPASE 50 U/L (8-78)
== END 2017-09-23 00:29 | disposition home or self-care (01) ==
LOC: ER 19:44
DX: R10.30 Lower abdominal pain, unspecified (principal); R11.0 Nausea; R19.7 Diarrhea, unspecified; K59.00 Constipation, unspecified; I12.0 Hypertensive chronic kidney disease with stage 5 chronic kidney disease or end stage renal disease; N18.6 End stage renal disease; Z99.2 Dependence on renal dialysis
CPT/HCPCS: 36415; 74022; 74176; 80053; 82150; 82550; 82553; 83690; 84484; 85025; 85610; 85730; 99284

== ENCOUNTER → 2017-10-21 | Day surgery (SDC) | payer MEDICARE ==
[~2017-10-21] MED LIST changes: +BACLOFEN10 MG PO; +BUMETANIDE0.5 MG PO; +CEFTRIAXONE SOD 1 GM VIAL ONE; +CEPHALEXIN500 MG PO; +CIPRO500 MG PO; +CLONAZEPAM0.5 MG PO; +ESCITALOPRAM OXA5 MG PO; +FINASTERIDE5 MG PO; +FLUCONAZOLE100 MG PO; +GABAPENTIN100 MG PO; +GENERLAC10 GM/15 M PO; +LACTULOSE20 GM/30 M PO; +LEVAQUIN250 MG PO; +LIDOCAINE HCL 2% LOCAL INJ 5 ML SDV VIAL INJ ONE; +LINZESS PO; +LORAZEPAM0.5 MG PO; +METRONIDAZOLE250 MG PO; +PERMETHRIN60 GM TOP; +POLYETHYLENE GLY1 GM PO; +PROPOFOL IV EMULSION 10 MG/ML 20 ML VIAL ONE; +SODIUM CHLORIDE 0.9% 500ML 500 ML ONE; +SULFAMETHOXAZO1 EAC1 PO; +TRIAMCINOLONE A15 G1 TOP; +TYLENOL WITH C1 EACH PO; +ULTRAM 50MG50 MG PO; +ZOFRAN ODT4 MG PO
--- OUTSIDE RECORDS SUMMARY | 2017-10-21 09:42 | XMS REPORT | Continuity of Care Document ---
Author Author [facility] Organization [facility] Address [address] [place] [address] Phone Unavailable Care Team Providers Care [employer] Superintendent Of Schools Name Role Phone NONSTAFF PCP Unavailable Insurance Providers Guarantor Herbert Alejo Address [address] [place] [address] Email NONE Payer [employer] Policy Number [id number] Subscriber's Name Herbert Alejo Relationship 18 Self / Same As Patient Advance Directives Directive Response Recorded Date/Time Does the patient have an advance directive? No 07/22/17 11:19am If yes, is advance directive on file with [facility]? No 07/16/17 12:01pm If not on file with [facility] will patient provide a copy? No 07/16/17 12:01pm Do you have a Directive to Physician? 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 No 09/23/17 12:18am Do you have an out of hospital Do Not Resuscitate Order? No 09/23/17 12:18am Do you have any special needs we should be aware of? No 09/23/17 12:18am Do you have a support person here with you today? Yes 09/23/17 12:18am Did patient receive Notice of Privacy Practices? Yes 09/23/17 12:18am Did patient receive patient rights and responsibilities? Yes 09/23/17 12:18am Problems No problem information available. Medications Current [...] information available. Plan of Care Discharge Date 09/23/17 12:29am Disposition HOME, SELF-CARE Condition at Discharge Stable Instructions/Education Provided Abdominal Pain - Adult Constipation - Adult Forms Provided Work/School Excuse Prescriptions See Medication Section Additional Instructions/Education FOLLOW UP WITH PRIMARY CARE PHYSICIAN TAKE MIRALAX (OVER THE COUNTER) DIRECTED Functional Status No functional status information available. [...] 07/24/2017 8:18am Height 6 ft 6 in 09/22/2017 6:57pm Weight 183 lb 09/22/2017 6:57pm Body Mass Index 21.1 kg/m^2 09/22/2017 6:57pm Results Laboratory Results Test Name Result Units Flags Reference Collection Date/Time Result Date/ Time Comments Urine Color YELLOW YELLOW 09/08/2017 11:41pm 09/08/2017 11:55pm Urine Clarity CLEAR CLEAR 09/08/2017 11:41pm 09/08/2017 11:55pm Urine Specific [place] 1.010 1.010-1.025 09/08/2017 11:41pm 2017 11:55pm Urine [...] /LPF NONE 09/08/2017 11:41pm 09/09/2017 12: 01am White Blood Count 3.43 x10e3/uL L 4.8-10.8 09/22/2017 10:35pm 2017 11:01pm Red Blood Count 4.51 x10e6/uL 4.3-5.7 09/22/2017 10:35pm 09/22/2017 11: 01pm Hemoglobin 12.8 g/dL L 14.0-18.0 09/22/2017 10:35pm 09/22/2017 11:01pm Hematocrit 38.8 % 38.2-49.6 09/22/2017 10:35pm 09/22/2017 11:01pm Mean Corpuscular Volume 86.0 fL 81-99 09/22/2017 10:35pm 09/22/2017 11: 01pm Mean Corpuscular Hemoglobin 28.4 pg 28-32 09/22/2017 10:35pm 2017 11:01pm Mean Corpuscular Hemoglobin Concent 33.0 g/dL 31-35 09/22/2017 10:35pm 09/22/2017 11:01pm Red Cell Distribution Width 16.1 % H 11.7-14.4 09/22/2017 10:35pm 2017 11:01pm Platelet Count 132 x10e3/uL L 140-360 09/22/2017 10:35pm 09/22/2017 11: 01pm Neutrophils (%) (Auto) 46.0 % 38.7-80.0 09/22/2017 10:35pm 09/22/2017 11:01pm Lymphocytes (%) (Auto) 35.6 % 18.0-39.1 09/22/2017 10:35pm 09/22/2017 11:01pm Monocytes (%) (Auto) 16.6 % H 4.4-11.3 09/22/2017 10:35pm 09/22/2017 11 :01pm Eosinophils (%) (Auto) 1.2 % 0.0-6.0 09/22/2017 10:35pm 09/22/2017 11: 01pm Basophils (%) (Auto) 0.3 % 0.0-1.0 09/22/2017 10:35pm 09/22/2017 11: 01pm IM GRANULOCYTES % 0.3 % 0.0-1.0 09/22/2017 10:35pm 09/22/2017 11:01pm Neutrophils # (Auto) 1.6 L 2.1-6.9 09/22/2017 10:35pm 09/22/2017 11: 01pm Lymphocytes # (Auto) 1.2 1.0-3.2 09/22/2017 10:35pm 09/22/2017 11: 01pm Monocytes # (Auto) 0.6 0.2-0.8 09/22/2017 10:35pm 09/22/2017 11:01pm Eosinophils # (Auto) 0.0 0.0-0.4 09/22/2017 10:35pm 09/22/2017 11: 01pm Basophils # (Auto) 0.0 0.0-0.1 09/22/2017 10:35pm 09/22/2017 11:01pm Absolute Immature Granulocyte (auto 0.01 x10e3/uL 0-0.1 09/22/2017 10: 35pm 09/22/2017 11:01pm Prothrombin Time 14.7 seconds H 11.9-14.5 09/22/2017 10:35pm 09/22/2017 11:20pm Prothromb Time International Ratio 1.24 09/22/2017 10:35pm 2017 11:20pm Oral Anticoagulant Therapy INR Values: 1. Low Intensity Therapy 1.5 - 2.0 2. Moderate Intensity Therapy 2.0 - 3.0 3. High Intensity Therapy(1) 2.5 - 3.5 4. High Intensity Therapy(2) 3.0 - 4.0 5. Panic Value INR > 5.0 Activated Partial Thromboplast Time 50.1 seconds H 23.8-35.5 09/22/2017 10:35pm 09/22/2017 11:20pm Sodium Level 140 mmol/L 136-145 09/22/2017 10:35pm 09/22/2017 11:19pm Potassium Level 4.4 mmol/L 3.5-5.1 09/22/2017 10:35pm 09/22/2017 11: 19pm Chloride Level 104 mmol/L 98-107 09/22/2017 10:35pm 09/22/2017 11:19pm Carbon Dioxide Level 27 mmol/L 22-29 09/22/2017 10:35pm 09/22/2017 11: 19pm Anion Gap 13.4 mmol/L 8-16 09/22/2017 10:35pm 09/22/2017 11:19pm Blood Urea Nitrogen 18 mg/dL 7-26 09/22/2017 10:35pm 09/22/2017 11: 19pm Creatinine 4.05 mg/dL H 0.72-1.25 09/22/2017 10:35pm 09/22/2017 11:19pm BUN/Creatinine Ratio 4 L 6-25 09/22/2017 10:35pm 09/22/2017 11:19pm Estimat Glomerular Filtration Rate 17 ML/MIN L 60- 09/22/2017 10:35pm 11:19pm Ranges were taken from the National Kidney Disease Education Program and the National Kid[employer] Foundation literature. Reference ranges: 60 or greater: Normal 16-59 (for 3 consecutive months): Chronic kidney disease 15 or less: Kidney failure Glucose Level 105 mg/dL 74-118 09/22/2017 10:35pm 09/22/2017 11:19pm Calcium Level 8.7 mg/dL 8.4-10.2 09/22/2017 10:35pm 09/22/2017 11:19pm Total Bilirubin 0.3 mg/dL 0.2-1.2 09/22/2017 10:35pm 09/22/2017 11: 19pm Aspartate Amino Transf (AST/SGOT) 20 IU/L 5-34 09/22/2017 10:35pm 09/22 11:19pm Alanine Aminotransferase (ALT/SGPT) 11 IU/L 0-55 09/22/2017 10:35pm 07/2017 11:19pm Total Protein 6.7 g/dL 6.5-8.1 09/22/2017 10:35pm 09/22/2017 11:19pm Albumin 3.4 g/dL L 3.5-5.0 09/22/2017 10:35pm 09/22/2017 11:19pm Globulin 3.3 g/dL 2.3-3.5 09/22/2017 10:35pm 09/22/2017 11:19pm Albumin/Globulin Ratio 1.0 0.8-2.0 09/22/2017 10:35pm 09/22/2017 11: 19pm Alkaline Phosphatase 174 IU/L H 40-150 09/22/2017 10:35pm 09/22/2017 11: 19pm Creatine Kinase 61 IU/L 30-200 09/22/2017 10:35pm 09/22/2017 11:19pm Creatine Kinase MB 1.70 ng/mL 0-5.0 09/22/2017 10:35pm 09/22/2017 11: 28pm Troponin I 0.061 ng/mL 0-0.300 09/22/2017 10:35pm 09/22/2017 11:28pm Amylase Level 85 U/L 25-125 09/22/2017 10:35pm 09/22/2017 11:49pm Lipase 50 U/L 8-78 09/22/2017 10:35pm 09/22/2017 11:49pm Procedures Procedure Status Date Provider(s) REMOVE PROSTATE REGROWTH Completed 07/22/[address] of abdomen and pelvis without contrast Active 09/09/[address] of abdomen and pelvis without contrast Active 09/22/17 LEONORA NGUYỄN BUILDING CODE INSPECTOR Encounters Encounter Location Arrival/Admit Date Discharge/Depart Date Attending Provider Departed Emergency Room [facility] 09/22/17 7:44pm 12:29am DEBI JOSE MD Departed Emergency Room [facility] 09/08/17 10:43pm 09/09 4:01am MILES GANDARA MD Discharged Inpatient (obs) [facility] 07/22/17 10:07am 12:40pm GRANT SIMMONS MD
[2017-10-21 11:06] LABS: BASOPHILS % 0.8 % (0.0-1.0); EOSINOPHILS # (AUTO) 0.2 (0.0-0.4); EOSINOPHILS % 8.8 % (0.0-6.0); HEMATOCRIT 39.4 % (38.2-49.6); HEMOGLOBIN 12.8 g/dL (14.0-18.0); LYMPHOCYTES # (AUTO) 1.2 (1.0-3.2); LYMPHOCYTES % 46.2 % (18.0-39.1); MEAN CORPUSCULAR HEMOGLOBIN 28.1 pg (28-32); MEAN CORPUSCULAR HGB CONC 32.5 g/dL (31-35); MEAN CORPUSCULAR VOLUME 86.4 fL (81-99); MONOCYTES # (AUTO) 0.5 (0.2-0.8); MONOCYTES % 18.5 % (4.4-11.3); NEUTROPHILS # (AUTO) 0.6 (2.1-6.9); NEUTROPHILS % 25.7 % (38.7-80.0); PLATELET COUNT 140 x10e3/uL (140-360); RED BLOOD COUNT 4.56 x10e6/uL (4.3-5.7); RED CELL DISTRIBUTION WIDTH 14.4 % (11.7-14.4)
[2017-10-21 11:22] LABS: ANION GAP 10.9 mmol/L (8-16); CALCIUM 8.9 mg/dL (8.4-10.2); CREATININE, SERUM 4.33 mg/dL (0.72-1.25); POTASSIUM 3.9 mmol/L (3.5-5.1)
--- NOTE | 2017-10-21 11:26 | Diagnostic Imaging Report ---
PROCEDURE:CHEST SINGLE (PORTABLE) TECHNIQUE:Portable AP chest on 2 radiographs INDICATION:Preoperative evaluation for prostate surgery. COMPARISON:Patients [facility], DX, ABDOMEN ACUTE SERIES W/PA CXR, 09/22/2017, 21:50. FINDINGS: Lungs are clear and symmetrically inflated. No pleural effusions. Stable cardiomediastinal silhouette, with normal heart size for technique. Intact skeleton. CONCLUSION: No acute abnormality. Dictated by: Jelani Chun M.D. on 10/21/2017 at 11:27 Electronically approved by: Jelani Chun M.D. on 10/21/2017 at 11:27
[2017-10-21 11:31] LABS: INR 1.13; PROTHROMBIN TIME 13.6 seconds (11.9-14.5)
[2017-10-21 13:23] LABS: EOSINOPHILS % (MANUAL) 8 % (0-7); LYMPHOCYTES % (MANUAL) 48 % (19-48); MONOCYTES % (MANUAL) 11 % (3.4-9.0); NEUTROPHILS % (MANUAL) 26 % (40-74)
[2017-10-21 13:24] LABS: ANISOCYTOSIS SLIGHT; HYPOCHROMASIA SLIGHT; PLATELET ESTIMATE SLIGHTLY DECREASED; PLATELET MORPHOLOGY COMMENT NORMAL; RBC MORPHOLOGY COMMENT NORMAL
--- NOTE | 2017-10-21 15:05 | Operative Report ---
DATE OF PROCEDURE: October 21, 2017 PREOPERATIVE DIAGNOSIS: Elevated prostate-specific antigen and probable prostate cancer. POSTOPERATIVE DIAGNOSIS: Elevated prostate-specific antigen and probable prostate cancer. OPERATIVE PROCEDURES PERFORMED: Transrectal digital biopsy of prostate. ANESTHESIA: TIVA. ESTIMATED BLOOD LOSS: Minimal. INDICATIONS: Mr. Herbert Rodriguez is an 82-year-old gentleman with an elevated PSA to 50. 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 He now presents for tissue diagnosis. PROCEDURE IN DETAIL: The patient was brought into the operating room. After administration of IV sedation, he was placed in the left lateral decubitus position, prepped and draped in the usual fashion. Under digital guidance, 6 biopsies were obtained from both the right and left sides. The patient was noted to have a palpably abnormal gland with a nodule palpable at the right mid gland. Sections were taken through this site. These specimens were sent to pathology for microscopic analysis. The patient was returned to the supine position, and anesthesia was reversed. He was transferred to a bed and taken to the postanesthesia care unit in good condition. The needle and instrument counts were correct at the conclusion of the case. Job#: [id number]
== END | disposition home or self-care (01) ==
LOC: OR 09:40
PROVIDERS: ATTEND Urology
DX: C61 Malignant neoplasm of prostate (principal); N32.0 Bladder-neck obstruction; R97.20 Elevated prostate specific antigen [PSA]; N18.6 End stage renal disease; Z99.2 Dependence on renal dialysis; Z01.812 Encounter for preprocedural laboratory examination; Z01.810 Encounter for preprocedural cardiovascular examination; Z01.818 Encounter for other preprocedural examination; Z86.73 Personal history of transient ischemic attack (TIA), and cerebral infarction without residual deficits
CPT/HCPCS: 36415; 55700; 71045; 80048; 85025; 85610; 85730; 88305; 88342; 93005; J0696; J2001; J7040